=== PATIENT | male | born 1955 | race African-American/Black ===

== ENCOUNTER 2023-12-02 13:23 | Emergency (ER) | payer SELFPAY ==
[~2023-12-02] VITALS: Ht 180.3 cm; Wt 118.0 kg
[2023-12-02 13:26] VITALS: O2SAT 100
[2023-12-02 13:39] VITALS: TEMP 98
[2023-12-02] MEDS: SODIUM CHLORIDE 0.9% 500 ML IV ONE (14:27)
[2023-12-02 15:22] LABS: BASOPHILS % 1.1 % (0.0-2.0); EOSINOPHILS % 3.1 % (0.0-5.0); HEMATOCRIT. 32.3 % (42.0-52.0); HEMOGLOBIN. 10.5 g/dL (14.0-18.0); LYMPHOCYTES % 20.8 % (20.0-50.0); MEAN CORPUSCULAR HEMOGLOBIN 30.1 pg (28.0-32.0); MEAN CORPUSCULAR HGB CONC 32.4 g/dL (31.0-37.0); MEAN CORPUSCULAR VOLUME 92.7 fL (80.0-94.0); MEAN PLATELET VOLUME 8.4 fl (7.4-10.4); MONOCYTES % 11.3 % (2.0-8.0); NEUTROPHILS % 63.7 % (40.0-76.0); PLATELET 219 x1000/uL (130-400); RED BLOOD CELL COUNT 3.48 mill/uL (4.7-6.1); RED CELL DISTRIBUTION WIDTH 18.6 % (11.6-14.6); WHITE BLOOD COUNT 5.1 x1000/uL (4.5-11.0)
[2023-12-02 15:28] LABS: CHLORIDE 100 mEq/L (98-107); POTASSIUM 5.2 mEq/L (3.5-5.1); SODIUM 135 mEq/L (136-145)
[2023-12-02 15:29] LABS: CALCIUM 9.3 mg/dL (8.7-10.4); CARBON DIOXIDE 20 mEq/L (21-32)
[2023-12-02] MEDS: HYDROCODONE/ACETAMINOPHEN 7.5/325MG TABLET PO ONE (15:30)
[2023-12-02 15:34] LABS: GLUCOSE 69 mg/dL (70-105); UREA NITROGEN BLOOD 76 mg/dL (9-23)
[2023-12-02 15:35] LABS: TROPONIN I HIGH SENSITIVITY 49 ng/L (3.0-53)
[2023-12-02 15:41] LABS: CREATININE 10.7 mg/dL (0.6-1.3)
[2023-12-02 17:18] LABS: HEPATITIS B SURFACE ANTIGEN NEGATIVE (Negative)
[2023-12-02 17:38] LABS: HEPATITIS A AB IGM NEGATIVE (Negative)
[2023-12-02 17:39] LABS: HEPATITIS B CORE AB IGM NEGATIVE (Negative)
[2023-12-02 17:40] LABS: HEPATITIS C AB NON REACTIVE (Neg) (Negative)
[2023-12-02 17:59] VITALS: BP 135/82; PULSE 76; RESP 22
== END 2023-12-02 18:15 | disposition left against medical advice (07) ==
LOC: ER 14:20 → EDBEDREQ 17:56 → EDBEDREQTM 17:56 → CANBEDREQ 18:08 → ER 18:15
DX: I12.0 Hypertensive chronic kidney disease with stage 5 chronic kidney disease or end stage renal disease (principal); I50.9 Heart failure, unspecified; N18.6 End stage renal disease; Z99.2 Dependence on renal dialysis
CPT/HCPCS: 99285; 71045; 80048; 83880; 85025; 87340; 84484; 36415; 86709; 93005; 86705; J7040